=== PATIENT | female | born 1980 | race Caucasian/White ===

== ENCOUNTER 2021-05-28 09:45 | Outpatient (REF) | payer OTHER, SELFPAY ==
[2021-05-30 16:16] LABS: HPV mRNA E6/E7 rflx Not Detected (Not Detected)
== END 2021-05-28 09:46 | disposition home or self-care (01) ==
LOC: HO.LAB 09:45
PROVIDERS: Visit Provider Obstetrics & Gynecology
DX: Z01.419 Encounter for gynecological examination (general) (routine) without abnormal findings (principal); Z11.51 Encounter for screening for human papillomavirus (HPV)
CPT/HCPCS: 87624; 88142

== ENCOUNTER 2021-07-08 10:43 | Outpatient (REF) | payer OTHER, SELFPAY ==
--- NOTE | ~2021-07-08 | MM_ITS ---
EXAMINATION: MM SCREENING DIGITAL BREAST TOMOSYNTHESIS, BILATERAL CLINICAL INFORMATION: Screening. Asymptomatic. Age 41. No prior breast imaging. No known family history breast cancer. The lifetime risk of breast cancer based on the Tyrer-Cuzick Model is 7%. COMPARISON: None (current study represents initial baseline exam). TECHNIQUE: Digital breast tomosynthesis is performed in both the craniocaudal and mediolateral oblique views along with computer-aided detection (CAD). Synthesized 2D images are generated from the tomosynthesis. FINDINGS: There are scattered areas of fibroglandular density (ACR BI-RADS breast composition Category b). There are no significant masses, abnormal calcifications, or other abnormalities. The axilla and skin contours are unremarkable. MM/MM tomosynthesis screening BI IMPRESSION: No mammographic evidence of malignancy. ASSESSMENT: BI-RADS 1: Negative RECOMMENDATION: Routine annual mammography screening. This patient's information was entered into a reminder system with a target due date for their next mammogram.
== END 2021-07-08 10:44 | disposition home or self-care (01) ==
LOC: HO.MAMMO 10:43
PROVIDERS: Visit Provider Obstetrics & Gynecology
DX: Z12.31 Encounter for screening mammogram for malignant neoplasm of breast (principal)
CPT/HCPCS: 77063; 77067

== ENCOUNTER 2021-08-30 13:58 | Emergency (ER) | payer OTHER, SELFPAY ==
--- NOTE | ~2021-08-30 | XR_ITS ---
EXAMINATION: XR CHEST CLINICAL INFORMATION: Shortness of breath COMPARISON: None TECHNIQUE: 2 views of the chest were obtained. FINDINGS: Cardiac silhouette is normal in size. Lungs are well aerated. There is no lobar consolidation. No pleural effusion or pneumothorax. Mild degenerative changes of the spine. XR/XR chest 2V IMPRESSION: No acute pulmonary pathology.
[2021-08-30 14:50] VITALS: BP 167/76; PULSE 86; RESP 18; TEMP 36.6; O2SAT 99; BMI 27.3
--- NOTE | 2021-08-30 16:51 | ED_ITS ---
HPI - URI/Sore Throat General Chief Complaint: Upper Respiratory Symptoms Stated Complaint: COVID+/ SOB/HBP Time Seen by Provider: 08/30/21 16:24 Source: patient Mode of arrival: ambulatory Limitations: no limitations History of Present Illness HPI Narrative: 41-year-old female with past medical history high blood pressure presents to ED for coughing and body aches since tested positive for COVID this past Tuesday at her job. Patient states symptoms began Tuesday night. Patient denies any chest pain. Patient states no leg swelling, calf pain, coughing up blood, weakness, dizziness, or shortness of breath on exertion. MD elicited complaint: fever and cough Related Data Home Medications Medication Instructions Recorded Confirmed buspirone 10 mg tablet 10 mg PO BID 05/28/21 labetalol 200 mg tablet 200 mg PO BID 05/28/21 venlafaxine 37.5 mg 37.5 mg PO DAILY 05/28/21 capsule,extended release 24 hr (Effexor XR) Previous Rx's Medication Instructions Recorded benzonatate 100 mg capsule 100 mg PO TID PRN 5 Days #15 cap 08/30/21 dexamethasone 6 mg tablet 6 mg PO DAILY 10 Days #10 tab 08/30/21 (Decadron) Allergies Allergy/AdvReac Type Severity Reaction Status Date / Time No Known Allergies Allergy Verified 05/28/21 10:00 Review of Systems Review of Systems: Yes all other systems are reviewed and are negative Constitutional: Constitutional: Reports as per HPI, Reports no additional constitutional complaints, Reports body ache(s), Reports chills and Reports fever(s) Eyes: Eyes: Reports as per HPI and Reports no additional eye complaints ENT: Reports system reviewed and no additional complaints, except as documented and Reports as per HPI Cardiovascular: Cardiovascular: Reports as per HPI, Reports no additional cardiovascular complaints, Denies dyspnea and Denies dyspnea on exertion Respiratory: Respiratory: Reports as per HPI, Reports no additional respiratory complaints, Reports cough, Denies dyspnea and Denies dyspnea on exertion Gastrointestinal: Gastrointestinal: Reports as per HPI and Reports no additional gastrointestinal complaints Genitourinary: Genitourinary: Reports no additional female genitourinary complaints and Reports as per HPI Musculoskeletal: Musculoskeletal: Reports no additional musculoskeletal complaints and Reports as per HPI Neurologic: Reports system reviewed and no additional complaints, except as documented and Reports as per HPI Psychiatric: Psychiatric: Reports no additional psychiatric complaints and Reports as per HPI [facility] Past Medical History Medical History (Updated 08/30/21 @ 17:02 by ROQUE Coyne) Anxiety Asthma HTN (hypertension) Family History Family History Mother HTN (hypertension) Depression Sister Depression Social History Social History Household Members: None Housing: Apartment Alcohol intake: current Patient Tobacco Use Status: Current everyday Tobacco user Tobacco use type: Cigarette Cigarettes Per Day: 7 Years Smoked: 7 Advance Directives: No Advance Directives Information Provided: No service: No Current occupational status: employed Sexual orientation: Straight/Heterosexual Gender identity: Female Physical Exam Vital Signs: Vital Signs: Last Vital Signs Temp 97.8 F 08/30/21 14:50 Pulse 86 08/30/21 14:50 Resp 18 08/30/21 14:50 BP 167/76 H 08/30/21 14:50 Pulse Ox 99 08/30/21 14:50 BMI result Body Mass Index 27.3 Const: General: cooperative, healthy appearing, comfortable, no acute distress, well developed, alert, awake and Physically active Orientation/consciousness: patient oriented x3 HENMT: Head: Yes normal to inspection, Yes No palpable skull fracture present, Yes normocephalic, Yes atraumatic and No abrasion Eyes: General: appearance normal, both eyes and all related structures Neck: Neck: Yes normal visual inspection, Yes full ROM, Yes no lymphadenopathy, Yes no meningeal signs, Yes trachea midline, Yes supple, No anterior neck swelling and No tender Chest: Chest palpation & inspection: normal inspection of the chest and normal palpation of entire chest wall Resp: Effort & Inspection: normal respiratory effort and able to speak in complete sentences Auscultation: clear to auscultation bilaterally Cardio: Jugular venous distension: no JVD Heart sounds: S1 normal heart sound present and S2 normal heart sound present GI: Inspection: Yes normal to inspection and No abdominal wall ecchymosis Palpation (GI): Soft to palpation, not firm, nontender, no guarding and not rigid : General: No CVA tenderness and Yes no CVA tenderness Back/Spine/Pelvis: Back: no CVA tenderness, No CVA tenderness and No back ten derness Skin: General skin exam: no rashes or lesions noted and elasticity normal Neuro: General: patient oriented x3, gait normal, no meningeal signs and CN's II-XI intact bilaterally Cranial nerves: Yes CN's II-XII intact bilaterally Extrem: Other: Lower extremities negative for swelling, pitting edema, calf tenderness General: Yes normal to inspection and Yes full ROM Psych: Appearance: grossly normal, well kempt and not disheveled Course Course Course Narrative: X-ray ordered Reevaluation(s) Reevaluation #1: Chest x-ray negative for pneumonia. Patient is not hypoxic. Patient well-appearing. Patient vital signs stable. Patient playing on cellphone. Patient had mild wheezing on lungs with history of asthma will discharge with Decadron and coughing medication Time: 17:00 MDM - URI/Sore Throat MDM Narrative Medical decision making narrative: COVID Discharge Plan Discharge Clinical Impression: COVID-19 Patient Disposition: Home, Self-Care Instructions: COVID-19 (Coronavirus Disease 2019) (ED) Additional Instructions: Return to the ED for any chest pain, shortness of breath, weakness, dizziness, c oughing up blood, calf pain, or any other concerning symptoms. Please follow-up with primary care provider. Prescriptions: New dexamethasone [Decadron] 6 mg tablet 6 mg PO DAILY 10 Days Qty: 10 RF: 0 benzonatate 100 mg capsule 100 mg PO TID PRN (Reason: cough) 5 Days Qty: 15 RF: 0 No Action venlafaxine [Effexor XR] 37.5 mg capsule,extended release 24hr 37.5 mg PO DAILY RF: 0 buspirone 10 mg tablet 10 mg PO BID RF: 0 labetalol 200 mg tablet 200 mg PO BID RF: 0 Stand Alone Forms: Work/School Release Interventions: ED Discharge Assessment Last Done: 08/30/21 17:22 Discharge Date/Time: 08/30/21 17:23 Print Language: Cook Islander
== END 2021-08-30 17:23 | disposition home or self-care (01) ==
PROVIDERS: Emergency Provider Emergency Medicine; PCP Nurse Practitioner
DX: U07.1 COVID-19 (principal); F17.200 Nicotine dependence, unspecified, uncomplicated; J45.909 Unspecified asthma, uncomplicated; I10 Essential (primary) hypertension
CPT/HCPCS: 71046; 99283

== ENCOUNTER 2021-10-12 17:52 | Emergency (ER) | payer OTHER, SELFPAY ==
[2021-10-12 19:44] VITALS: BP 154/90; PULSE 102; RESP 16; TEMP 37.1; O2SAT 100; BMI 27.1
[2021-10-12] MEDS: Ketorolac Tromethamine 30 MG/ML VIAL IM (21:27)
--- NOTE | 2021-10-12 21:37 | ED.DENTAL ---
HPI - Dental/Oral General Chief complaint: Dental/Oral Stated complaint: abscess on tooth Time Seen by Provider: 10/12/21 21:21 Source: patient Mode of arrival: ambulatory Limitations: no limitations History of Present Illness HPI Narrative: This is a 41-year-old female no known medical history presenting to the emergency department with severe toothache. Patient tells me that this has been going on for years however is been worsening over the past few days. She tells me that she broke a tooth and she supposed to get it extracted however due to her uncontrolled hypertension they have not been able to proceed with the procedure. She is followed by a dentist who is aware of this. Today she tells me that she has increasing pain to the site. She denies fevers, chills, difficulty swallowing, nausea, vomiting, diarrhea, changes in voice, difficulty controlling secretions, neck pain, earache Followed by [facility]. MD Complaint: tooth pain Location: Tooth # (5&6) Teeth map: 1. 2. Onset (ago): day(s) (3) Duration: constant Severity: severe Severity scale (1-10): >10 Relieving factors: nothing Exacerbating factors: nothing Context: history of dental caries, trauma (mechanism) and poor dental care Treatment prior to arrival: none Related Data Home Medications Medication Instructions Recorded Confirmed buspirone 10 mg tablet 10 mg PO BID 05/28/21 labetalol 200 mg tablet 200 mg PO BID 05/28/21 venlafaxine 37.5 mg 37.5 mg PO DAILY 05/28/21 capsule,extended release 24 hr (Effexor XR) Previous Rx's Medication Instructions Recorded benzonatate 100 mg capsule 100 mg PO TID PRN 5 Days #15 cap 08/30/21 dexamethasone 6 mg tablet 6 mg PO DAILY 10 Days #10 tab 08/30/21 (Decadron) acetaminophen 325 mg capsule 650 mg PO Q6H PRN #30 cap 10/12/21 amoxicillin 875 mg-potassium 1 tab PO BID 7 Days #14 tab 10/12/21 clavulanate 125 mg tablet ibuprofen 600 mg tablet 600 mg PO Q8H PRN #30 tab 10/12/21 oxycodone 5 mg capsule 5 mg PO Q8H PRN #10 cap 10/12/21 Allergies Allergy/AdvReac Type Severity Reaction Status Date / Time No Known Allergies Allergy Verified 10/12/21 19:44 Review of Systems Review of Systems: Constitutional : No Fever, No Chills, Cardiovascular : No Chest Pain, No SOB Respiratory : No Dyspnea HEENT: + tooth pain Gastrointestinal : No abdominal pain Musculoskeletal : No Joint Swelling Skin : No rash, No skin laceration Neuro : No Weakness, No Numbness Psych : No SI/HI Yes all other systems are reviewed and are negative [facility] Past Medical History Attestation statement: The following information was validated with the patient. Source: old records reviewed and nursing notes reviewed Medical History Anxiety Asthma Depression HTN (hypertension) Family History Family History Mother HTN (hypertension) Depression Sister Depression Social History Social History Household Members: None Housing: Apartment Alcohol intake: current Patient Tobacco Use Status: Current everyday Tobacco user Tobacco use type: Cigarette Cigarettes Per Day: 7 Years Smoked: 7 Advance Directives: No Advance Directives Information Provided: Yes service: No Current occupational status: employed Sexual orientation: Straight/Heterosexual Gender identity: Female Physical Exam Vital Signs: Vital Signs: Last Vital Signs Temp 98.8 F 10/12/21 19:44 Pulse 102 H 10/12/21 19:44 Resp 16 10/12/21 19:44 BP 154/90 H 10/12/21 19:44 Pulse Ox 100 10/12/21 19:44 BMI result Body Mass Index 27.1 VSS Slightly tachycardic likely secondary to severe pain. Appearance: Alert.? Oriented X3.? No acute distress.? Head: Normocephalic, atraumatic, no step-offs or deformities Eyes: Pupils equal, round and reactive to light.? ENT: Pharynx normal.?+ abnormalities noted tooth 6. And 5 it appears as though tooth number 6 is missing, and tooth 5. Appears to be cracked. Poor dental care. Halitosis. No evident abscesses. No trismus. Controlling secretions well.(image below) Neck: Normal inspection.? Neck supple.? CVS: Normal heart rate and rhythm.? Pulses normal.? Respiratory: No respiratory distress.? Breath sounds normal.? Abdomen: Soft and nontender.? Skin: Skin warm and dry.? Normal skin color.? Normal skin turgor.? Extremities: No lower extremity edema.? No calf ttp. 5/5 strength to bilateral upper and lower extremities Back: No midline tenderness, no C-spine tenderness, full range of motion, no CVA tenderness bilaterally Neuro: Oriented X 3.? No motor deficit.? No sensory deficit. CN 2-12 intact Course Reevaluation(s) Reevaluation #1: Discussed plan with patient. Patient agrees with plan will follow-up with dentist as soon as possible. Will be started on antibiotics will be given an opiate for severe pain however she would prefer to take ibuprofen and Tylenol alternating as needed. Comfortable discharge home educated her on worrisome signs and symptoms. Time: 21:42 MDM - Dental/Oral MDM Narrative Medical decision making narrative: 2140 41 yo f presents with severe tooth pain x years worsening. PE images in chart poor dentition, caries, broken and missing tooth. Plan- pain meds and antibiotics. Medical Records Attestation: I reviewed the patient's medical records. Lab Data Attestation: I reviewed the patient's lab results. Critical Care Time Critical Care Time Critical Care Time: No Discharge Plan Discharge Clinical Impression: Toothache, Fracture of tooth Patient Disposition: Home, Self-Care Instructions: Toothache (ED), Tooth Extraction (DC) Additional Instructions: Take your medications as prescribed. If you were prescribed antibiotics today, it is important that you take your medication to their entirety, do not skip any doses, do not finish them early. Follow-up with your primary care provider this week. Please follow-up with your dentist as soon as possible. You can take ibuprofen every 6 hours, Tylenol every 4 as needed for pain. A narcotic has been sent to her pharmacy oxycodone please only take this for severe pain. It is an opiate in it could cause addiction. Return to the emergency department with new or worsening symptoms. In case of emergency call 911 I attest that I have reviewed patients [place], and at the time prescribing the patient a controlled substance is appropriate based off of patients diagnosis and treatment plan. Prescriptions: New amoxicillin-pot clavulanate 875-125 mg tablet 1 tab PO BID 7 Days Qty: 14 0RF oxycodone 5 mg capsule 5 mg PO Q8H PRN (Reason: pain) Qty: 10 0RF Rx Instructions: Patient can partially filled prescription upon request ibuprofen 600 mg tablet 600 mg PO Q8H PRN (Reason: pain) Qty: 30 0RF acetaminophen 325 mg capsule 650 mg PO Q6H PRN (Reason: fever or pain) Qty: 30 0RF No Action dexamethasone [Decadron] 6 mg tablet 6 mg PO DAILY 10 Days Qty: 10 0RF benzonatate 100 mg capsule 100 mg PO TID PRN (Reason: cough) 5 Days Qty: 15 0RF venlafaxine [Effexor XR] 37.5 mg capsule,extended release 24hr 37.5 mg PO DAILY 0RF buspirone 10 mg tablet 10 mg PO BID 0RF labetalol 200 mg tablet 200 mg PO BID 0RF Referrals: Janet Gutierrez [Primary Care Provider] - 2 days Stand Alone Forms: Work/School Release Interventions: ED Discharge Assessment Last Done: 10/12/21 21:33 Discharge Date/Time: 10/12/21 21:34
== END 2021-10-12 21:34 | disposition home or self-care (01) ==
PROVIDERS: Emergency Provider Internal Medicine; PCP Nurse Practitioner
DX: K04.7 Periapical abscess without sinus (principal); K03.81 Cracked tooth; I10 Essential (primary) hypertension; Z79.899 Other long term (current) drug therapy; F17.210 Nicotine dependence, cigarettes, uncomplicated; Z71.6 Tobacco abuse counseling
CPT/HCPCS: 96372; 99283; 99284; J1885

== ENCOUNTER 2022-11-30 18:47 | Emergency (ER) | payer OTHER, SELFPAY ==
--- NOTE | 2022-11-30 19:10 | ED.DENTAL ---
HPI - Dental/Oral General Chief complaint: Dental/Oral <ROQUE Machado - Last Filed: 11/30/22 19:14> Stated complaint: abscess on tooth left side?/swollen <ROQUE Machado Last Filed: 11/30/22 19:14> Time Seen by Provider: 11/30/22 22:04 <ROQUE Machado - Last Filed: 11/30/22 19:14> Source: patient <ROQUE Han Last Filed: 11/30/22 22:40> Mode of arrival: ambulatory <ROQUE Han Last Filed: 11/30/22 22:40> Limitations: no limitations <ROQUE Han Last Filed: 11/30/22 22:40> History of Present Illness HPI Narrative: This is a 42-year-old female history of anxiety, hypertension, asthma presenting to the emergency department for evaluation at lower left dental pain since , patient reports she thinks that she has an abscess, notes that 1 of her teeth in the back is cracked and she is supposed to have it hold by her dentist however her blood pressure has been too high and she needs medical clearance prior to getting her tooth pulled. She reports increasing pain to left lower tooth. Patient tells me that while she was in the waiting room she felt like her abscess to that tooth popped. Patient tells me she was messing with it and it popped. She tells me she swallowed thick yellow stuff <ROQUE Han Last Filed: 11/30/22 22:40> Related Data Home medications: Home Medications Medication Instructions Recorded Confirmed buspirone 10 mg tablet 10 mg PO BID 05/28/21 labetalol 200 mg tablet 200 mg PO BID 05/28/21 venlafaxine 37.5 mg 37.5 mg PO DAILY 05/28/21 capsule,extended release 24 hr (Effexor XR) Previous Rx's Medication Instructions Recorded benzonatate 100 mg capsule 100 mg PO TID PRN cough 5 days #15 08/30/21 caps dexamethasone 6 mg tablet 6 mg PO DAILY 10 days #10 tabs 08/30/21 (Decadron) acetaminophen 325 mg capsule 650 mg PO Q6H PRN fever or pain 10/12/21 #30 caps amoxicillin 875 mg-potassium 1 tab PO BID 7 days #14 tabs 10/12/21 clavulanate 125 mg tablet ibuprofen 600 mg tablet 600 mg PO Q8H PRN pain #30 tabs 10/12/21 oxycodone 5 mg capsule 5 mg PO Q8H PRN pain #10 caps 10/12/21 amoxicillin 875 mg-potassium 1 tab PO BID 10 days #20 tabs 11/30/22 clavulanate 125 mg tablet ketorolac 10 mg tablet 10 mg PO TID PRN pain 5 days #15 11/30/22 tabs morphine 15 mg immediate release 15 mg PO Q6H PRN pain 5 days #10 11/30/22 tablet tabs <ROQUE Machado - Last Filed: 11/30/22 19:14> Allergies/adverse reactions: Allergies Allergy/AdvReac Type Severity Reaction Status Date / Time No Known Allergies Allergy Verified 10/12/21 19:44 <ROQUE Machado Last Filed: 11/30/22 19:14> Review of Systems Review of Systems: Constitutional : No Weight loss, No Fever, No Chills, No Fatigue, No Malaise ENT/Mouth : No sore throat, No Rhinorrhea, + dental pain Eyes: No Eye Pain, No Swelling, No Redness Cardiovascular : No Chest Pain, No SOB, No Dyspnea on Exertion, No Orthopnea, No Edema, No Palpitations Respiratory : No Cough, No Sputum, No Wheezing Gastrointestinal : No Nausea, No Vomiting, No Diarrhea, No Constipation, No abdominal Pain, No Hematochezia, No Melena Genitourinary : No Dysuria, No Urinary Frequency, No Hematuria, Musculoskeletal : No joint pain, No Myalgias, No Joint Swelling Skin : No Skin Lesions, No rash Neuro : No Weakness, No Numbness, No Dizziness, No Headache Psych : No Anxiety/Panic, No Depression All other systems reviewed and are negative <ROQUE Han Last Filed: 11/30/22 22:40> Yes all other systems are reviewed and are negative <ROQUE Han Last Filed: 11/30/22 22:40> [facility] Past Medical History Attestation statement: The following information was validated with the patient. <ROQUE Han - Last Filed: 11/30/22 22:40> Source: old records reviewed and nursing notes reviewed <ROQUE Hna - Last Filed: 11/30/22 22:40> Medical History: Medical History Anxiety Asthma Depression HTN (hypertension) <ROQUE Machado - Last Filed: 11/30/22 19:14> Family History Family History: Family History Mother HTN (hypertension) Depression Sister Depression <ROQUE Machado - Last Filed: 11/30/22 19:14> Social History Social History: Social History Household Members: None Housing: Apartment Alcohol intake: current Alcohol intake frequency: 0-2 drinks per day Patient Tobacco Use Status: Current everyday Tobacco user Tobacco use type: Cigarette Cigarettes Per Day: 7 Years Smoked: 7 Smoked in Last 30 Days: Yes Use of substances other than those prescribed or required for medical reasons: Yes Substance Use Type: Marijuana Advance Directives: No Advance Directives Information Provided: No Patient : No service: No Current occupational status: employed Sexual orientation: Straight/Heterosexual Gender identity: Female <ROQUE Machado - Last Filed: 11/30/22 19:14> Physical Exam Vital Signs: Vital Signs: Last Vital Signs Temp 98.8 F 11/30/22 19:12 Pulse 96 11/30/22 19:12 Resp 20 11/30/22 19:12 BP 138/88 11/30/22 19:12 Pulse Ox 98 11/30/22 19:12 O2 Del Method Room Air 11/30/22 19:12 BMI result Body Mass Index 27.3 <ROQUE Machado - Last Filed: 11/30/22 19:14> Vital Signs: Last Vital Signs Temp 98.8 F 11/30/22 19:12 Pulse 96 11/30/22 19:12 Resp 20 11/30/22 19:12 BP 138/88 11/30/22 19:12 Pulse Ox 98 11/30/22 19:12 O2 Del Method Room Air 11/30/22 19:12 BMI result Body Mass Index 27.3 vss <ROQUE Han - Last Filed: 11/30/22 22:40> Appearance: Alert.? Oriented X3.? No acute distress.? Head: Normocephalic, atraumatic, no step-offs or deformities Eyes: Pupils equal, round and reactive to light.? ENT: Pharynx normal.? Uvula midline. No edema to posterior pharynx. Patient's left lower molar appears to be cracked, erythema to come, there is some pus noted surrounding the tooth likely secondary to pooped abscess.No fluctuance. Patient is speaking in full sentences controlling secretions well. No trismus noted Neck: Normal inspection.? Neck supple.?NO LLAD CVS: Normal heart rate and rhythm.? Pulses normal.? Respiratory: No respiratory distress.? Breath sounds normal.? Abdomen: Soft and nontender.? Skin: Skin warm and dry.? Normal skin color.? Normal skin turgor.? Extremities: No lower extremity edema.? No calf ttp. 5/5 strength to bilateral upper and lower extremities Neuro: Oriented X 3.? No motor deficit.? No sensory deficit. CN 2-12 intact <ROQUE Han - Last Filed: 11/30/22 22:40> Course Course Course Narrative: RME--42yo F w/PMHx anxiety, HTN, asthma c/o dental abscess since with increasing pain and swelling. Denies fever, chills or drainage from area. Reports compliance with BP meds +dental abscess noted to L lower molar with fluctuance and pointing Will need I&D <ROQUE Machado - Last Filed: 11/30/22 19:14> Reevaluation(s) Reevaluation #1: Due to the time patient was given her 1st dose of Toradol here as well as Augmentin for dental infection. Will have her follow up with PCP and her dentist. I did explain to her that she should call tomorrow for an appointment, she verbalizes understanding. Educated patient on diagnosis and treatment plan, answered all question, patient verbalizes understanding. At this time patient will be discharged home, advised to return with new or worsening symptoms. Educated on worrisome signs and symptoms and when to return. At this time I feel comfortable discharge home. <ROQUE Han - Last Filed: 11/30/22 22:40> Time: 22:39 <ROQUE Han - Last Filed: 11/30/22 22:40> Medical Decision Making Medical Decision Making [facility] Narrative: 2230 42-year-old female presents with left lower dental pain for the past few days worsening. Reports she has a broken tooth and it supposed to get pulled however needs medical clearance before her dentist will do this. She reports that she came in with an abscess to her left lower molar however it popped in the waiting room. Physical exam significant for Pharynx normal.? Uvula midline. No edema to posterior pharynx. Patient's left lower molar appears to be cracked, erythema to come, there is some pus noted surrounding the tooth likely secondary to pooped abscess.No fluctuance. Patient is speaking in full sentences controlling secretions well. Patient likely had a dental abscess that popped while in our waiting room now she has poor dentition throughout, dental caries, fractured tooth with erythema. History and physical examination significant for poor dentition, dental caries, fractured tooth, erythema around left lower molar. No evidence of abscess at this time. No signs of airway compromise. Plan at this time is to discharge patient home with pain medicine and antibiotics. Will have her follow-up with dentist <ROQUE Han - Last Filed: 11/30/22 22:40> Differential Diagnosis Differential Diagnoses: The differential diagnosis associated with the presentation includes <ROQUE Han Last Filed: 11/30/22 22:40> History and physical examination significant for poor dentition, dental caries, fractured tooth, erythema around left lower molar. No evidence of abscess at this time. No signs of airway compromise. <ROQUE Han Last Filed: 11/30/22 22:40> Admission/Observation Consideration of admission/observation: Escalation of care including admission/observation considered <ROQUE Han Last Filed: 11/30/22 22:40> Unlikely <ROQUE Han Last Filed: 11/30/22 22:40> Core Measures AMI core measures followed: Yes <ROQUE Han - Last Filed: 11/30/22 22:40> Measure exclusions: not indicated <ROQUE Han - Last Filed: 11/30/22 22:40> Critical Care Time Critical Care Time Critical Care Time: No <ROQUE Han Last Filed: 11/30/22 22:40> Discharge Plan Discharge Clinical Impression: Dental caries, Toothache <ROQUE Machado - Last Filed: 11/30/22 19:14> Patient Disposition: Home, Self-Care <ROQUE Machado Last Filed: 11/30/22 19:14> Instructions: Toothache (ED), Tooth Extraction (DC) <ROQUE Machado - Last Filed: 11/30/22 19:14> Additional Instructions: Take your medications as prescribed. If you were prescribed antibiotics today, it is important that you take your medication to their entirety, do not skip any doses, do not finish them early. Follow-up with your primary care provider this week. Return to the emergency department with new or worsening symptoms. Such as fevers, chills, chest pain, shortness of breath, nausea, vomiting, dizziness, headache, vision changes, lethargy, trouble controlling her secretions, difficulty opening mouth, changes in voice, trouble swallowing In case of emergency call 911 Toradol has been sent to your pharmacy, you tolerated this well in the department. Please take this as prescribed do not take this with ibuprofen, or other NSAIDs, do not mix this with alcohol. Side effects of this medication including increased risk for bleeding and possible kidney injury. A narcotic has been sent to your pharmacy please take this as prescribed. Do not take more than the prescribed dose. Narcotic medications can cause addiction. Please do not mix them with alcohol. Do not take them while driving or operating machinery. Do not take them with any other narcotics. Do not share them with friends or family. They can cause constipation. Take them only for severe pain. Please take Toradol for alyx-sq-orcqfott pain. Narcotic can be taken for severe pain. Please follow-up with dentist as soon as possible. Your blood pressure today was 138/88, your blood pressure could be high secondary to pain. <ROQUE Machado - Last Filed: 11/30/22 19:14> Prescriptions: New ketorolac 10 mg tablet 10 mg PO TID PRN (Reason: pain) 5 Days Qty: 15 0RF amoxicillin-pot clavulanate 875-125 mg tablet 1 tab PO BID 10 Days Qty: 20 0RF morphine 15 mg tablet 15 mg PO Q6H PRN (Reason: pain) 5 Days Qty: 10 0RF Rx Instructions: Partial Fill upon patient request. No Action dexamethasone [Decadron] 6 mg tablet 6 mg PO DAILY 10 Days Qty: 10 0RF benzonatate 100 mg capsule 100 mg PO TID PRN (Reason: cough) 5 Days Qty: 15 0RF amoxicillin-pot clavulanate 875-125 mg tablet 1 tab PO BID 7 Days Qty: 14 0RF oxycodone 5 mg capsule 5 mg PO Q8H PRN (Reason: pain) Qty: 10 0RF Rx Instructions: Patient can partially filled prescription upon request ibuprofen 600 mg tablet 600 mg PO Q8H PRN (Reason: pain) Qty: 30 0RF acetaminophen 325 mg capsule 650 mg PO Q6H PRN (Reason: fever or pain) Qty: 30 0RF venlafaxine [Effexor XR] 37.5 mg capsule,extended release 24hr 37.5 mg PO DAILY buspirone 10 mg tablet 10 mg PO BID labetalol 200 mg tablet 200 mg PO BID <ROQUE Machado - Last Filed: 11/30/22 19:14> Referrals: Physician,Unknown J [Primary Care Provider] - 2 days <ROQUE Machado - Last Filed: 11/30/22 19:14> Stand Alone Forms: Work/School Release <ROQUE Machado - Last Filed: 11/30/22 19:14>
[2022-11-30 19:12] VITALS: BP 138/88; PULSE 96; RESP 20; TEMP 37.1; O2SAT 98; BMI 27.3
--- NOTE | 2022-11-30 21:05 | PC.NURSE ---
Addendum entered by Jenn Mathews RN 11/30/22 21:06: Abscess is noted below the right bottom back tooth which is broken. Original Note: Patient presents with dental abscess. Upon inspection the abscess is oozing pus at this time. Patient complaining of 9/10 pain for this area. Patient otherwise is well appearing.
[2022-11-30] MEDS: Ketorolac Tromethamine 30 MG/ML VIAL IM (23:12)
[2022-11-30] MEDS: Amoxicillin/Potassium Clav 875 MG TABLET PO (23:12)
[2022-11-30 23:15] VITALS: BP 134/68; PULSE 82; RESP 16; O2SAT 98
== END 2022-11-30 23:19 | disposition home or self-care (01) ==
PROVIDERS: Emergency Provider Internal Medicine
DX: K02.9 Dental caries, unspecified (principal); K08.89 Other specified disorders of teeth and supporting structures; F17.210 Nicotine dependence, cigarettes, uncomplicated; Z71.6 Tobacco abuse counseling; Z79.899 Other long term (current) drug therapy
CPT/HCPCS: 96372; 99284; J1885

== ENCOUNTER 2022-12-14 09:42 | Outpatient (REF) | payer OTHER, SELFPAY | END 2022-12-14 09:43 | disposition home or self-care (01) | LOC: HO.LNP 09:42 | PROVIDERS: Visit Provider Obstetrics & Gynecology | DX: Z13.89 Encounter for screening for other disorder (principal) ==

== ENCOUNTER 2022-12-14 10:30 | Outpatient (REF) | payer OTHER, SELFPAY ==
[2022-12-14 11:09] LABS: Hematocrit 39.4 % (37.0-47.0); Hemoglobin 13.3 g/dl (12.0-16.0); Mean Corpuscular HGB Conc 33.8 g/dl (31.0-35.0); Mean Corpuscular Hemoglobin 31.7 pg (27.0-33.0); Mean Corpuscular Volume 93.8 fL (80.0-98.0); Mean Platelet Volume 9.7 fL (9.4-12.3); Platelet Count 207 X10*3/uL (160-400); Red Cell Distribution Width 12.3 % (11.0-16.0); White Blood Count 3.5 X10*3/uL (4.8-10.8)
[2022-12-14 13:10] LABS: HCG Quantitative < 2 mIU/mL; TSH reflex Free T4 0.44 uIU/mL (0.32-4.0)
[2022-12-14 14:37] LABS: CT PCR NOT DETECTED (Not Detect.); NG PCR NOT DETECTED (Not Detect.)
[2022-12-16 05:08] LABS: Prolactin 6.2 ng/mL
== END 2022-12-14 10:31 | disposition home or self-care (01) ==
LOC: HO.LAB 10:30
PROVIDERS: PCP Registered Nurse; Visit Provider Obstetrics & Gynecology
DX: Z11.3 Encounter for screening for infections with a predominantly sexual mode of transmission (principal); N93.9 Abnormal uterine and vaginal bleeding, unspecified
CPT/HCPCS: 0353U; 84146; 84443; 84702; 85027

== ENCOUNTER 2024-06-07 15:18 | Outpatient (AMB) | payer OTHER, SELFPAY ==
--- OUTSIDE RECORDS SUMMARY | 2024-06-07 15:20 | XMS_ITS | Patient Health Record ---
Author Organization [facility] Address [address], [place] [id number] Care Team Providers Care Forensic Identification Specialist Name Role Phone [facility] Primary Care Provide r Unavailable REASON FOR REFERRAL No Information MEDICATIONS Medication SIG (Take, Route, Frequency, Duration) Notes Start Date End Date Status predniSONE 20 mg 2 tabs orally once a day for 5 day(s) 03/09/2013 Active albuterol 2.5 mg/3 mL (0.083%) 3 mL inhaled every 6 hours for 30 day(s) 03/12/2013 Active ProAir HFA CFC free 90 mcg/inh 2 puff(s) inhaled 4 times a day for 30 day(s) 05/31/2012 Active Zoloft 50 mg 1 tab(s) orally once a day for 30 day(s) 07/26/2012 Active busPIRone 10 mg 1 tab(s) orally BID for 30 day(s) Active IMMUNIZATIONS Vaccine Route Administration Date Status Comme nts Fluarix IM Intramuscular 10/15/2011 Administered Tdap Unknown 02/08/2010 Administered Hepatitis A Unknown 02/02/2010 Administered PPD planted Unknown 05/04/2011 Administered PPD negative Unknown 05/07/2011 Administered SOCIAL HISTORY Sex Assigned At : Social History Observation Description Sex Assigned At Unknown PROBLEMS Problem Type ICD Code Onset Dates Problem Status W/U Status Risk SNOMED Code Notes Problem Obesity, BMI 30-39.9 (278.00) Active confirmed Obesity (708538062) Problem Opioid abuse, 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) Active confirmed Nondependent opioid abuse in remission (642571301) Problem Cocaine abuse, in remission (305.63) Active confirmed Nondependent cocaine abuse in remission (961032668) Problem Asthma with acute exacerbation (493.92) Active confirmed Low Exacerbation of asthma (840816032) Problem Tobacco use disorder (305.1) Active confirmed Tobacco use (809524758) Problem Asthma (493.00) Active confirmed Asthma (219881859) Problem AB NOS W METAB DIS-UNSP (637.40) Active confirmed Miscarriage complicated by metabolic disorder (39175840) Problem Depression with anxiety (300.4) Active confirmed Mixed anxiet y and depressive disorder (848611656) Problem Insomnia (780.52) Active confirmed Insomnia (843386787) PLAN OF TREATMENT Pending Test Test Name Order Date HIV Ora Quick Advance 03/09/2013 test - urine dip 03/09/2013 Insurance Providers Payer Name Payer Address Payer Phone Subscriber Number Group Number Insured Name Patient Relationship to Insured Coverage Start Date Coverage End Date [facility] [address] [place] [id number] [id number] Edie Herculesomi Self - patient is the insured MEDICAL (GENERAL) HISTORY Medical History History ICD Code asthma depression/anxiety-treated in the past a t [facility]. chronic grief tobacco abuse 03/06/2010 HIV testing negative [facility] hx of opioid abuse, cocaine abuse/had us ed suboxone in the past. Surgical History Surgery Date(Month/Year) C section 2009
--- NOTE | 2024-06-07 15:35 | A.OFFVIS_ITS ---
Vital Signs 06/07/24 15:38 Height 5 ft 4 in Weight 160 lb BMI 27.5 BP 118/74 Intake Visit Reasons: WO[employer]INGLE [employer]OOFER annual exam Ad Taker Required: No Information Interpreted: non-clinical & clinical Anesthesiologists' Assistant: Anesthesiologists' Assistant Present (Danette BROWN) Accompanied by: Self / Same As Patient Allergies No Known Allergies Allergy (Verified 06/07/24 15:39) Is last menstrual period known: No HPI Comments Details: Presenting for annual exam. No complaints. Last Pap/HPV was negative in 06/11 Last Mammogram was BI-RADS 1 in 07/12 [facility] Medical History Depression Asthma Anxiety HTN (hypertension) Family History Mother HTN (hypertension) Depression Sister Depression Social History Household Members: None Housing: Apartment Alcohol intake: current Alcohol intake frequency: 0-2 drinks per day Patient Tobacco Use Status: Current everyday Tobacco user Tobacco use type: Cigarette Cigarettes Per Day: 7 Years Smoked: 7 Substance Use Type: Marijuana service: No Current occupational status: employed Current occupation: [employer] Sexual orientation: Straight/Heterosexual Gender identity: Female Female Reproductive History Menstrual Menopause type: natural Total pregnancies: 5 Full term: 2 Ab spontaneous: 3 Date of last pap smear: 05/29/21 Date of Mammogram: 07/08/21 Review of Systems Const All systems reviewed & are unremarkable except as noted in HPI and below Card Reports as per HPI Resp Reports as per HPI GI Reports as per HPI and Reports no additional complaints Reports as per HPI Physical Exam Vital Signs: Last Vital Signs BP 118/74 06/07/24 15:38 BMI result Body Mass Index 27.5 Const General: cooperative, healthy appearing and comfortable Chest Chest palpation & inspection: normal inspection of the chest and normal palpation of entire chest wall Breast/axilla inspection: normal inspection of the breasts and normal inspection of the axillae Breast/axilla palpation: normal palpation of the breasts, normal palpation of the axillae and no axillary lymphadenopathy Resp Effort & Inspection: normal respiratory effort Auscultation: clear to auscultation bilaterally Percussion: percussion normal Cardio Palpation: normal PMI Rate: regular rate Rhythm: regular rhythm Heart sounds: no murmurs and no rubs Peripheral pulses: Peripheral pulses 2+ throughout GI Inspection: Yes normal to inspection Palpation (GI): Soft to palpation, nontender, no guarding, not rigid and No hepatosplenomegaly present Percussion: Yes normal to percussion Auscultation: normal bowel sounds Rectal Exam - Female: deferred General: Yes bladder normal to palpation External Female Exam: No lesion Speculum Exam - Vagina: normal appearance of the vagina, normal palpation, normal vaginal discharge and not erythematous Speculum Exam - Cervix: normal appearance of the cervix and normal palpation Bimanual exam- vagina & uterus: normal bimanual exam, normal palpation, uterine size normal, bladder normal to palpation, consistency normal and normal palpation Bimanual Exam- Adnexa, other: normal adnexae, no masses and no tenderness Assessment & Plan Assessment & Plan (1) Well woman exam: Code(s): Z01.419 - Encounter for gynecological examination (general) (routine) without abnormal findings Category: Medical Plan: Cotesting not indicated this year. Mammogram ordered. Counseled the patient about the recommended dietary allowance of 1000 mg of Calcium & 600 IU of vitamin D. The patient was instructed to perform monthly self-breast exams and to schedule an annual exam in a year; All questions answered and the patient verbalized understanding. Instructed the patient to schedule annual exam in a year Orders: Orders MM tomosynthesis screening BI Today Z12.31 - Encounter for screening mammogram for malignant neoplasm of breast Coding Level of Care Code Est Pt Prev Care 40-64y(36559) Diagnoses Well woman exam Z01.419
[2024-06-07 15:38] VITALS: BP 118/74; BMI 27.5
== END 2024-06-07 15:54 | disposition home or self-care (01) ==
LOC: HO.HWS 15:18
PROVIDERS: PCP Registered Nurse; Visit Provider Obstetrics & Gynecology
DX: Z01.419 Encounter for gynecological examination (general) (routine) without abnormal findings (principal)
CPT/HCPCS: 99396

== ENCOUNTER → 2024-06-07 15:18 | Outpatient (BNVA) | payer OTHER, SELFPAY | PROVIDERS: PCP Registered Nurse; Visit Provider Obstetrics & Gynecology | DX: Z01.419 Encounter for gynecological examination (general) (routine) without abnormal findings (principal) | CPT/HCPCS: 99396 ==

== ENCOUNTER 2024-06-08 15:14 | Outpatient (REF) | payer OTHER, SELFPAY ==
[2024-06-08 16:27] LABS: MANUAL DIFF FLAG NO
[2024-06-08 16:36] LABS: Basophils Percent Auto 0.7 % (0-2); Eosinophils Absolute Auto 0.1 X10*3/uL (0.0-0.4); Eosinophils Percent Auto 0.9 % (0-4); Imm Gran Abs Auto 0.01 X10*3/uL (0.00-0.03); Imm Gran Pct Auto 0.2 % (0.0-0.4); Lymphocytes Absolute Auto 1.3 X10*3/uL (1.2-4.9); Lymphocytes Percent Auto 24.2 % (20-40); Mean Corpuscular HGB Conc 34.1 g/dl (31.0-35.0); Mean Corpuscular Hemoglobin 31.2 pg (27.0-33.0); Mean Corpuscular Volume 91.3 fL (80.0-98.0); Mean Platelet Volume 9.7 fL (9.4-12.3); Monocytes Absolute Auto 0.6 X10*3/uL (0.1-1.2); Monocytes Percent Auto 11.1 % (2-11); Neutrophils Absolute Auto 3.5 x10*3/uL (2.0-8.3); Neutrophils Percent Auto 62.9 % (45-73); Platelet Count 232 X10*3/uL (160-400); Red Blood Count 4.49 X10*6/uL (4.20-5.50); Red Cell Distribution Width 11.7 % (11.0-16.0); White Blood Count 5.5 X10*3/uL (4.8-10.8)
[2024-06-08 16:42] LABS: Estimated Average Glucose 88 mg/dL; Hemoglobin A1c % 4.7 % (<6.0); Total Hemoglobin (HGBA1C) 3473.7713 umol/L
[2024-06-08 16:48] LABS: Alanine Aminotransferase 18 U/L (0-31); Albumin Level 4.5 g/dL (3.5-5.0); Alkaline Phosphatase 72 U/L (39-117); Anion Gap 12 (12-20); Aspartate Amino Transferase 23 U/L (5-31); Bilirubin Total 0.4 mg/dL (0.0-1.0); Blood Urea Nitrogen 7 mg/dL (9-16); Calcium 9.9 mg/dL (8.4-10.2); Carbon Dioxide 23 mmol/L (22-29); Chloride 106 mmol/L (96-108); Estimated Glomerular Filt Rate > 60; Glucose Random 94 mg/dL (60-115); Potassium 3.8 mmol/L (3.3-5.1); Sodium 137 mmol/L (135-145); Total Protein 7.7 g/dL (6.5-8.0)
== END 2024-06-08 15:15 | disposition home or self-care (01) ==
LOC: HO.HHCL 15:14
PROVIDERS: Visit Provider Nurse Practitioner Family
DX: F10.90 Alcohol use, unspecified, uncomplicated (principal)
CPT/HCPCS: 36415; 80053; 83036; 85025

== ENCOUNTER 2024-06-19 11:29 | Outpatient (REF) | payer OTHER, SELFPAY ==
--- NOTE | ~2024-06-19 | MM_ITS ---
EXAMINATION: MM SCREENING DIGITAL BREAST TOMOSYNTHESIS, BILATERAL CLINICAL INFORMATION: Screening. Asymptomatic. COMPARISON: Mammography: Comparison is made with available priors TECHNIQUE: Digital breast mammography with tomosynthesis is performed in both the craniocaudal and mediolateral oblique views along with computer-aided detection (CAD). FINDINGS: There are scattered areas of fibroglandular density (ACR BI-RADS breast composition Category b). Focal asymmetry upper outer breast posterior depth stable from 2020. There are no significant masses, abnormal calcifications, or other abnormalities. MM/MM tomosynthesis screening BI IMPRESSION: No mammographic evidence of malignancy. ASSESSMENT: BI-RADS BI-RADS 2 - Benign Findings RECOMMENDATION: Routine annual mammography screening. 1 year F/U This examination should not preclude the clinical evaluation of a suspicious palpable abnormality. This patient's information was entered into a reminder system with a target due date for their next mammogram. Electronically signed by: Marianne Merlos DO 06/27/2024 10:29 AM [facility]
== END 2024-06-19 11:30 | disposition home or self-care (01) ==
LOC: HO.MAMMO 11:29
PROVIDERS: PCP Registered Nurse; Visit Provider Obstetrics & Gynecology
DX: Z12.31 Encounter for screening mammogram for malignant neoplasm of breast (principal)
CPT/HCPCS: 77063; 77067

== ENCOUNTER → 2024-06-19 11:45 | Outpatient (BNV) | payer OTHER, SELFPAY | PROVIDERS: PCP Registered Nurse; Visit Provider Internal Medicine | DX: Z12.31 Encounter for screening mammogram for malignant neoplasm of breast (principal) | CPT/HCPCS: 77063; 77067 ==